=== PATIENT | female | born 1965 | race African-American/Black ===

== ENCOUNTER 2016-09-22 17:10 | Observation (INO) | payer OTHER ==
[~2016-09-22] VITALS: Ht 165.1 cm; Wt 125.0 kg
[~2016-09-22 17:10] MED LIST: ADVIL,NUPRIN,M200 MG PO; ASCORBIC ACID500 M3 PO; BP MED; DOCUSATE SODIU100 MG PO; ENDOCET 5-3251 EACH PO; FEROSUL325 MG PO; FLEXERIL10 MG PO; IBUPROFEN600 MG PO; IRON325 MG PO; LASIX20 MG PO; LORTAB 5-325 M1 EACH PO; MOTRIN IB200 MG PO; MOTRIN600 MG PO; NAPROSYN500 MG PO; PERCOCET 5/31 TABLET PO; PREDNISONE20 MG PO; PREMARIN0.625 MG PO; PROVERA,CYCRIN10 MG PO; TORADOL10 MG PO; TRIAMTERENE-HC1 EACH PO; ZOFRAN ODT8 MG PO
[2016-09-22 17:40] LABS: HEMATOCRIT 37.6 % (36.0-46.0); MCH 23.6 PG (29.0-34.0); MCHC 30.6 G/DL (30.0-36.0); MEAN PLAT.VOLUME 11.2 uM^3 (9.5-12.4); PLATELET COUNT 199 K/uL (156-360); RBC DIS.WIDTH-CV 13.6 % (11.8-14.6); RED BLOOD COUNT 4.88 M/uL (3.80-5.20); WHITE BLOOD COUNT 4.7 K/uL (4.1-10.2)
[2016-09-22 17:49] LABS: CHLORIDE 104 mEq/L (99-109); SODIUM 141 mEq/L (136-147)
[2016-09-22 17:51] LABS: GLUCOSE 84 mg/dL (70-99)
[2016-09-22] MEDS ORDERED: MELOXICAM15 MG PO (17:51)
[2016-09-22 17:52] LABS: ANION GAP 9 MEQ/L (2-14)
[2016-09-22 17:55] LABS: GFR ESTIMATE (CALCULATED) > 59 mL/min/; UREA NITROGEN (BUN) 14 mg/dL (9-23)
[2016-09-22] MEDS ORDERED: DYAZIDE, MA1 CAPSULE PO (18:43)
[2016-09-22] MEDS ORDERED: IBUPROFEN600 MG PO (18:43)
[2016-09-22] MEDS ORDERED: PREMARIN0.3 MG PO (18:44)
[2016-09-22 21:30] LABS: SERUM ETHYL ALCOHOL < 10 mg/dL
[2016-09-22 21:44] LABS: HDL CHOLESTEROL 46 MG/DL (Desirable>=50); LDL CHOLESTEROL 123 mg/dL (Desirable<100); NON-HDL CHOLESTEROL 158 mg/dL (Desirable<160); SAMPLE HEMOLYSIS CHECK 0; SAMPLE ICTERIC CHECK 0; SAMPLE LIPEMIA CHECK 0; TOTAL CHOLESTEROL 204 mg/dL (Desirable<200); TRIGLYCERIDES 175 MG/DL (Normal: <150)
[2016-09-22 23:28] LABS: Estimated Average Glucose 126 mg/dL (70-123)
[2016-09-23] VITALS: BP 122/85
[2016-09-23 04:19] VITALS: BP 130/78
[2016-09-23 08:35] VITALS: BP 125/72
[2016-09-23 15:41] VITALS: BP 101/64
[2016-09-23 20:00] VITALS: BP 123/58
[2016-09-24] VITALS: BP 131/63
[2016-09-24 02:29] LABS: AMPHETAMINES QUANT VALUE 0 NG/ML; BARBITUATES QUANT VALUE 0 NG/ML; BENZODIAZEPINES QUANT VALUE 0 NG/ML; BENZODIAZEPINES, URINE SCREEN Negative (200 ng/mL); MARIJUANA QUANT VALUE 0 NG/ML; OPIATES QUANTITATIVE VALUE 0 NG/ML; PHENCYCLIDINE QUANT VALUE 0 NG/ML
[2016-09-24 04:00] VITALS: BP 119/69
[2016-09-24 07:59] VITALS: BP 125/73
[2016-09-24] MEDS ORDERED: ASPIR-LOW81 MG PO (10:14)
[2016-09-24] MEDS ORDERED: ATORVASTATIN CA80 MG PO (10:14)
[2016-09-24] MEDS ORDERED: ADULT FOLDING1 EACH MC (11:16)
[2016-09-24 11:29] VITALS: BP 111/73
== END 2016-09-24 15:20 | disposition home or self-care (01) ==
LOC: EME 17:10 → 5SOUTH 21:00 → EDOF 21:00 → 5SOUTH 23:12
PROVIDERS: Physician Assistant Medical
DX: G45.9 Transient cerebral ischemic attack, unspecified (principal); R20.0 Anesthesia of skin; R47.81 Slurred speech; R29.810 Facial weakness; N93.9 Abnormal uterine and vaginal bleeding, unspecified; I10 Essential (primary) hypertension; E78.5 Hyperlipidemia, unspecified; M06.9 Rheumatoid arthritis, unspecified; G47.33 Obstructive sleep apnea (adult) (pediatric); E66.01 Morbid (severe) obesity due to excess calories; Z68.42 Body mass index [BMI] 45.0-49.9, adult
CPT/HCPCS: 70450; 70551; 71010; 80048; 80061; 80306 90; 83036; 85027; 93005; 93306; 93880; 99281; 99285; G0378; G0480; G8978 GP CH; G8979 GP CH; G8980 GP CH; J1650

== ENCOUNTER 2017-04-18 21:39 | Emergency (ER) | payer OTHER ==
[~2017-04-18] VITALS: Ht 165.1 cm; Wt 136.2 kg
[~2017-04-18 21:39] MED LIST changes: +ADULT FOLDING1 EACH MC; +ASPIR-LOW81 MG PO; +ATORVASTATIN CA80 MG PO; +DYAZIDE, MA1 CAPSULE PO; +MELOXICAM15 MG PO; +PREMARIN0.3 MG PO
[2017-04-18 21:40] VITALS: BP 127/66
[2017-04-18] MEDS ORDERED: BENADRYL25 MG PO (23:59)
[2017-04-18] MEDS ORDERED: BENADRYL ITCH R14 ML TP (23:59)
[2017-04-18] MEDS ORDERED: ANTI-ITCH28 G1 TP (23:59)
== END 2017-04-19 00:50 | disposition home or self-care (01) ==
LOC: EME 21:39
DX: S40.862A Insect bite (nonvenomous) of left upper arm, initial encounter (principal); S10.96XA Insect bite of unspecified part of neck, initial encounter; W57.XXXA Bitten or stung by nonvenomous insect and other nonvenomous arthropods, initial encounter
CPT/HCPCS: 99281; 99284